=== PATIENT | female | born 1990 | race Caucasian/White ===

== ENCOUNTER 2022-03-04 08:00 | Outpatient (RCR) | payer OTHER, SELFPAY ==
--- NOTE | 2022-03-04 09:05 | BH.SGPN.GN ---
Behaviors/Verbalizations/Mental Status: [] Eye contact is good. Motor activity is appropriate. Appearance is casual. Speech is Appropriate. Mood is depressed. Affect is flat. Thoughts are linear and logical. No evidence of psychosis. Reviewed daily check in sheet and pt reports 3/5 for suicidal thoughts and 0/5 for intent. [place] Screening was completed at admission. Client Response/Progress/Benefit: [] Pt participated when prompted. Attentive. Daily symptom tracker notes 5/5 for anxiety, 4/5 for depression, and 2/5 for self-harm urges. Pt shared that today is her first day in PHP. When asked what she wanted to get out of the program she stated I'm looking for a reason to stay alive. Group empathized and attempted to make her feel welcome. Group shared advice and feedback for her first days in the program and provided encouragement which was beneficial. Pt appears engaged and would smile and laugh appropriately during the group. Limited progress noted as this was her first day in PHP. Will continue in PHP to maintain safety, improve functioning, and stabilize mood. Narrative Note: []
--- NOTE | 2022-03-04 10:10 | BH.SGPN.GN ---
Behaviors/Verbalizations/Mental Status: []Client alert and oriented, casually dressed and groomed. Eye contact avodiant. Motor activity appropriate. Speech within normal limits. Affect constricted, mood anxious, Thoughts linear, logical, no signs of hallucinations or delusions. Client Response/Progress/Benefit: Client responded well to session AEB taking notes. Participated in discussion of things that can keep people feeling trapped or stuck in life including; avoidance, unhealthy coping, and isolation. Connected with barrier of social anxiety. Client able to identify negative thoughts that have kept client stuck which included ?Everyone going to leave. and why try too much. Appeared to benefit from gaining awareness of how negative thoughts reinforce mental health symptoms and keep people stuck. Will continue IOP tx to, decrease presenting depression and to improve overall functioning.
--- NOTE | 2022-03-04 11:15 | BH.SGPN.GN ---
Behaviors/Verbalizations/Mental Status: []Client alert and oriented, casually dressed and groomed. Eye contact avodiant, Motor activity appropriate. Speech within normal limits. Affect flat mood depressed and anxious. Thoughts linear, logical, no signs of hallucinations or delusions. Client Response/Progress/Benefit: [] Client responded well to session, contributing to discussion and providing supportive feedback. Client identified a negative thought that has kept her stuck. Client's thought was what is even the point and why even try. Client reported when she thinks this way she will give up easily or not even try things at all. Client worked to reframe the thought by finding more rational, realistic ways to look at the thoughts and then processed within group setting. Client reframed the thought to ?Why not try?. Client stated she will use positive self-talk to continue challenging negative self-talk. Client appeared to benefit from practicing challenging negative thinking. Client will continue IOP tx to promote use of healthy coping skills that will improve overall functioning. Narrative Note: [] Behaviors/Verbalizations/Mental Status: []Client alert and oriented, casually dressed and groomed. Eye contact avodiant, Motor activity appropriate. Speech within normal limits. Affect flat mood depressed and anxious. Thoughts linear, logical, no signs of hallucinations or delusions. Client Response/Progress/Benefit: [] Client responded well to session, contributing to discussion and providing supportive feedback. Client identified a negative thought that has kept her stuck. Client's thought was what is even the point and why even try. Client reported when she thinks this way she will give up easily or not even try things at all. Client worked to reframe the thought by finding more rational, realistic ways to look at the thoughts and then processed within group setting. Client reframed the thought to ?Why not try?. Client stated she will use positive self-talk to continue challenging negative self-talk. Client appeared to benefit from practicing challenging negative thinking. Client will continue IOP tx to promote use of healthy coping skills that will improve overall functioning. Narrative Note: []
--- NOTE | 2022-03-04 14:54 | BH.COMM ---
Communication Note - Communication with Client Communication Note: Pt completed initial paperwork and [place] Suicide Screener which she scored severe. No active SI, plan, or intent today. Protective factors include mom and worry she will have a failed attempt that results in more problems. Pt denies any suicide attempts. Pt reports she does self-harm without intent to kill self. Pt states in the last month she has written a suicide note and made sure her house was ready in case anything happened to her. Pt states her friend has all of her knives. Denies access to firearms. Pt denies stockpile of medications besides the medications she is prescribed. Therapist provided counseling on reducing access to lethal means. Pt unsure she wants to include mom in plan to store extra prescription medications outside the home. Future-oriented. Reports ability to maintain safety today. Case discussed with Dr. Aguilar with plan to admit to [facility] with dx of F33.2
--- NOTE | 2022-03-04 15:04 | BH.MDN_ITS ---
Multi-Disciplinary Note - Note 45-min Individual Time Started:: 12:16 Date: 03/04/22 Purpose of session/treatment goals addressed:: Purpose of session was to assess pt's current symptoms and stressors, gather background information and identify treatment goals for [facility] level of care. Eye Contact:: Good Motor Activity:: Appropriate Appearance:: Casual Speech:: Appropriate Mood:: Anxious, Depressed Affect:: Congruent, Other - incongruent at times AEB client sharing about something sad but smiling Thoughts:: Linear, Logical, No evidence of hallucinations/delusions noted Staff Interventions:: psychoeducation on: - cognitive triangle and behavioral activation, CBT techniques, rapport building, strengths perspective, treatment planning, goal setting, taught coping skills Client Response:: Client responded well to session AEB client sharing openly about her history and reporting her first day in group went well. Client stated she has been struggling with mental health for several years. Client reported her mental health has been impacting her functioning for the past three years which has resulted in loss of a job and needing to change jobs. Client reported mental health symptoms worsened in April 2021 after her unexpectedly left her without any warning. Client stated she didn't see her from April 2021 until she saw him for the first time in December 2021. Client reported he still does not live in their home and she is unsure about the future of their relationship. Client stated once he left in April 2021 her depression and anxiety significantly worsened. Client reported she started having increased suicidal thoughts with ideas and some intention. Client stated in July she started online counseling since she wasn't getting better. Client reported after not seeing treatment progress she was encouraged to see a psychiatrist for medications. Client stated in December 2021 she started medications. Client reported her psychiatrist at [place] [address] referred her to [facility] IOP program after continuing to see limited benefit from lower level of care. Client reported she has been having suicidal thoughts daily for the last couple of months. Client denies any suicide attempts or inpatient psychiatric admissions. Client reported when severely depressed she has difficulty getting out of bed, anhedonia, low motivation, low concentration, decreased energy, feelings of hopelessness and worthlessness. Client stated she has seen some progress since starting medications with having increased interest in some of the things she used to like to do. Client reported while in [facility] she'd like to learn healthy coping skills to manage anxiety and depressed symptoms. Client stated she also would like to find purpose in life. Recognizes that would be a goal that would take longer to achieve. Client stated her anxiety keeps her from going places and her anxious thoughts at times will make her feel uncomfortable unless she performs a certain task. Client connected with psychoeducation on cognitive triangle, maintenance cycles and behavior activation. Client stated her goal for the day is to go to the library. Risks/Concerns:: Client reports daily thoughts of suicidal ideation. Denies active plan or intention to date. Future focused. No access to firearms. Client states she feels able to keep herself safe. Progress Toward Goals/Plan:: No progress noted given today is first day in PHP. Client provided homework to start completing provided safety/crisis plan. Client agreeable to work on safety plan and work on goal she set for the day. Client to continue PHP to improve daily functioning, increase healthy coping, and prevent decompensation. Time Stopped:: 13:00
--- NOTE | 2022-03-04 19:44 | BH.MTP_ITS ---
Master Treatment Plan - Patient Information Program Physician:: Dr. Aguilar Primary Therapist:: Lenore Madrid, [facility] - Psychiatric Diagnoses Psychiatric Diagnoses:: 1. Major depressive disorder, recurrent, severe without psychosis. 2. Generalized anxiety disorder. 3. Strong cluster B traits. 4. Trichotillomania Diagnosis Code(s):: F33.2 - Estimated LOS Estimated LOS (in weeks):: 1 Problem/Goal #1 - Problem/Goal #1 Stated Goal:: Client will reduce depression, feelings of hopelessness, and suicidal ideation due to Persistent Depressive Disorder through Partial Hospitalization program.? Description of Barriers: Client's distorted thoughts, low confidence, negative thinking, limited social support, isolation, and suicidal thoughts could be potential barriers to treatment. Functional Impact: The patient is a 31-year-old female who has been for 3 years but has been for 10 months (since April 2021). The patient has a history of depression, anxiety and trichotillomania and was referred to the [facility] behavioral health IOP program by her outpatient industrial psychology teacher due to depression and daily suicidal ideation. She has limited primary support. For the past 6 months she has had daily suicidal ideation off and on during the day but more than fleeting. She has been isolating herself and she has a history of self-harm for the past month now she has been cutting bilaterally on her arms superficially. Pt endorses feelings of depression with crying episodes, anhedonia, low motivation, apathy, decreased concentration, feelings of hopelessness and worthlessness. Pt has panic attacks weekly and have recently increased to daily since making a medication switch. - Objectives Objective #1 Stated Objective: Client will work with therapist to develop a ?crisis plan? which includes emergency telephone numbers, 3-4 coping strategies for SI, lists of supports, positive aspects of life, and motivations.? Interventions: Therapist will provide patient with safety plan worksheet and work with pt. to develop individualized plan. Discharge Criteria: Client will have met this objective when has completed crisis plan. Target Date: 03/13/22 Objective #2 Stated Objective: Client will learn and utilize 2-3 healthy coping strategies to manage depressive symptoms. Interventions: Therapist will utilize CBT techniques to assist client with understanding the connection between thoughts, feelings and behaviors. Education will be provided on behavioral activation. Therapist will assist client in learning internal coping strategies to manage depressive symptoms, along with helping client identify triggers. Discharge Criteria: Client will have achieved this goal when can verbalize and has practiced at least 2 healthy coping strategies that successfully manage depressive symptoms and decrease suicidal ideation. Target Date: 03/13/22 Problem/Goal #2 - Problem/Goal #2 Stated Goal:: Stabilize anxiety level while increasing ability to function on daily basis. Description of Barriers: Client's distorted thoughts, low confidence, negative thinking, limited social support, isolation, and suicidal thoughts could be potential barriers to treatment. Functional Impact: The patient is a 31-year-old female who has been for 3 years but has been for 10 months (since April 2021). The patient has a history of depression, anxiety and trichotillomania and was referred to the [facility] behavioral health IOP program by her outpatient industrial psychology teacher due to depression and daily suicidal ideation. She has limited primary support. For the past 6 months she has had daily suicidal ideation off and on during the day but more than fleeting. She has been isolating herself and she has a history of self-harm for the past month now she has been cutting bilaterally on her arms superficially. Pt endorses feelings of depression with crying episodes, anhedonia, low motivation, apathy, decreased concentration, feelings of hopelessness and worthlessness. Pt has panic attacks weekly and have recently increased to daily since making a medication switch. - Objectives Objective #1 Stated Objective: Client will learn and implement 2-3 calming skills to reduce overall anxiety and manage anxiety symptoms. Interventions: Therapist and group sessions will help client identify physiological warning signs of anxiety, increase awareness of thoughts that increase anxiety, and identify behaviors that reinforce anxious symptoms. Group and individual counseling will teach client calming skills to help manage anxious symptoms. Discharge Criteria: Client will have achieved this goal when can verbalize at least 2 calming skills and reports skills successfully help reduce anxious symptoms. Target Date: 03/13/22
--- NOTE | 2022-03-05 09:05 | BH.SGPN.GN ---
Behaviors/Verbalizations/Mental Status: [] Eye contact is good. Motor activity is appropriate. Appearance is casual. Speech is WNL. Mood is depressed. Affect is flat. Thoughts are linear and logical. No evidence of psychosis. Reviewed daily check in sheet and pt reports 5/5 for suicidal thoughts and 3/5 for intent. This is higher than yesterday. Chronic SI, however will meet with therapist this afternoon. Client Response/Progress/Benefit: [] Pt participated at times during the group discussion. Attentive. Emotion for today is overwhelmed. Daily symptom tracker notes 5/5 for depression, anxiety, and self-harm urges. She was able to identify two mental health wins however they were both over the weekend (prior to starting IOP). She reports that she attended balloonfest with friends and was able to manager software her anxiety. I don't do crowds well. Utilizing some earthing techniques to help her through. Also reports spent time outside of her house by reading on the porch. Despite intensity of scores pt was engaged, smiling, and laughing with peers. She did not bring up any stressors or struggles since yesterday. Benefits from the social aspect of group. Limited progress noted per pt's symptom tracker scores. Will continue in PHP to maintain safety, improve functioning, and increase healthy coping skills. Narrative Note: []
--- NOTE | 2022-03-05 10:10 | BH.SGPN.GN ---
Behaviors/Verbalizations/Mental Status: []Pt alert and oriented, neatly dressed and groomed. Eye contact good. Motor activity appropriate. Speech within normal limits. Affect constricted, mood anxious and depressed. Thoughts linear, logical, no signs of hallucinations or delusions. Client Response/Progress/Benefit: []Pt was an engaged participant AEB pt listening attentively to others. Attentive during psychoeducation on communication styles. Assisted group with identifying barriers of effective communication which included: ?dropping hints,? texting, assumptions, yelling, and hurtful language. Pt identified they most often use passive communication as pt over apologizes and does not express needs. Pt reports being passive impacts pt by being a people pleaser and getting taken advantage of by others. Benefited from increased awareness of different communication barriers, styles, and the importance of communicating effectively to improve mental wellness. Will continue PHP tx to prevent decompensation, maintain safety, and gain healthy coping skills. Narrative Note: []
--- NOTE | 2022-03-05 14:30 | BH.MDN ---
Multi-Disciplinary Note - Note 60-min Individual Time Started:: 12:10 Date: 03/05/22 Purpose of session/treatment goals addressed:: Purpose of session was to assess pt's current lethality risk, complete safety plan and set daily goal to encourage behavior activation. Eye Contact:: Good Motor Activity:: Appropriate Appearance:: Casual Speech:: Appropriate Mood:: Anxious, Depressed Affect:: Congruent Thoughts:: Linear, Logical, No evidence of hallucinations/delusions noted Staff Interventions:: thought challenging, CBT techniques, rapport building, strengths perspective, completed risk assessment / safety planning, goal setting Client Response:: Client stated she had a rougher night because she was triggered by two of the questions on the safety plan. Client reported she didn't like the positive reframe thoughts on the list because the thoughts seemed fake. Client stated she also started having negative thoughts that she didn't think identifying her mom as a reason to live or motivation to get better was good enough. Client reported her negative thoughts spiraled and she started to think what's the point of trying. Client stated she coped by self-harming via cutting last night; showed therapist several cuts on inner wrist. Client reported she did attempt to cope after she cut the first time by watching funny animal videos which she stated did help briefly. Client stated she did cut again after watching the videos. Client reported her self-harm last night was not with the intent to kill herself. Client stated she is frustrated she went back to old ways of coping since she hasn't cut in over a week. Client worked with therapist through the difficult parts on her safety plan. With assistance from therapist client able to identify thought reframes for her negative thought patterns. Client also connected with discussion that reasons to live can be the little things as well as in what would she miss if she weren't alive. Client worked with therapist to identify what would be helpful from supports and what would be unhelpful. Client identified supports can reach out to when needs distraction and who she can reach out to when needs to talk about her crisis. Client open to discussion about reducing means to lethal means. Client stated her plan for today is to put her last sharp object that she forgot to give her friend into her trunk tonight. Stated keeping her knives in her trunk has helped in the past. Client reported willing to put her weeks worth of medication in her pill organizer then put the rest of the medication in her trunk. Client stated not wanting to give her medication to her mom or friend because feels like she would be giving up all of her control. Client stated keeping knife and medications in her trunk will be enough. Agreed if suicidal thoughts worsen she'd be open to involving either her mom or friend into securing her medications. Client stated she did accomplish goal of going to the library after IOP yesterday which she did enjoy. Client reported today her small goal is to go get bubble tea because it will keep her from going home to lay in bed, which she stated is what she wants to do. Risks/Concerns:: Client reported on her symptom tracker this morning her suicidal thoughts as a 5/5 with 5 being severe and her intent a 3/5. Client reported at time of individual session she feels able to keep herself safe. Client agreeable to keep extra medications and sharps in her car trunk. Agreed if thoughts were to worsen she will have one of her supports store those items at their house. Client understands to call crisis hotline or go to nearest emergency room if feels unable to maintain safety. Progress Toward Goals/Plan:: Progress limited AEB reverting back to self-harm as a way to cope with negative thought patterns last night. Client did attempt to use one of her healthy coping skills but still reverted back to unhealthy strategies. Client struggles to manage her negative thoughts on her own. Client continues to report increased anxiety since coming off the Effexor. Client is to continue PHP to improve daily functioning, maintain safety and prevent decompensation. Time Stopped:: 13:10
--- NOTE | 2022-03-06 10:10 | BH.SGPN.GN ---
Behaviors/Verbalizations/Mental Status: []Pt alert and oriented, neatly dressed and groomed. Eye contact good. Motor activity appropriate. Speech within normal limits. Affect congruent, mood anxious and euthymic. Thoughts linear, logical, no signs of hallucinations or delusions. Client Response/Progress/Benefit: []Pt responded well to session AEB taking notes throughout and listening attentively to others. Pt was attentive throughout group activity identifying famous individuals and how they overcame failure to be successful. Pt helped group identify how fear of failure can impact mental health and relationships. Pt personally identified it leads to fear of success and avoidance. Pt participated in experiential activity, working with group members to problem solve. Appeared to benefit from increased knowledge of fear of failure. Will continue PHP tx to prevent decompensation, maintain safety, and increases overall functioning. Narrative Note: []
--- NOTE | 2022-03-06 10:30 | BH.NA_ITS ---
Physical Data - Vital Signs Pulse Rate: 75 Blood Pressure: 136/81 - Height/Weight Height: 1.63 m Weight:: 111.13 kg Weight in Pounds: 245.0 lbs Current Medication Compliance - Medication Compliance Do you take your medication as prescribed?: Yes Nutritional History - Appetite Nutritional Instructions:: If client shows signs of a swallowing problem, weight change of 10 pounds or more in the last month, or is on a diabetic diet, the physician will review and request a dietitian consult, as appropriate. All unintentional weight loss will be referred to the physician for decision on need for dietitian consult. Describe your appetite:: Good Functional Assessment - Sleep Pattern Describe any problems with sleeping: Client states it is hard to fall asleep, but she gets 6-8 hours of sleep per night. - Activities Motor Activity:: Functional Sensory/Communication Assess - Vision Problems Do you have any vision problems?: Glasses - Communication Problems Do you have difficulty understanding what people are saying?: No Medical Problems/History - Pain Assessment Do you have acute or chronic pain?: No - Additional History Additional comments:: trichotillomania Surgical History - Surgical History Have you had any surgeries? If so, list type and date:: No Substance Abuse - Substance Abuse Please describe substance abuse in the last 30 days:: Client reports occasional social alcohol use. Client denies tobacco or substance use. Client drinks 1 cup of coffee per day. Mental Status Summary - Mental Status Significant Findings/Observations on Appearance and Mood:: Client is alert and oriented x 4. Client is casually groomed with good hygiene. Client makes fair eye contact. Client's voice has normal volume and rate. Client makes logical associations and has normal processing, with somewhat of a flat affect at times. Client denies delusions/hallucinations. Client reports daily SI for the last several months, but denies intent at this time. Suicide Assessment - Suicidal Ideation Are you currently or have you been suicidal in the past?: Yes - daily SI, denies intent/plan at this time Suicidal Intentional Rating Scale (SIRS): Current suicidal thoughts/No plan/Contracts for safety Physician Notification: If Active suicidal thoughts/Will not contract for safety is checked, contact physician and document in the Physician Notification section below. Assault History/Potential Past Psychiatric History - MH Treatment Hx Past Psychiatric Medications:: Effexor, Prozac, Zoloft Age of first mental health symptoms: Client states she first took medications for mental health about 3 years ago. Describe (age, circumstance, etc) any past hospitalizations: None. Current providers for mental health treatment (counselor, psychiatrist, bilingual patient support caseworker, etc.): [facility], psychiatry at [place] [id number] Fall Risk Assessment - Age Age: Less than 60 - Mental Status Mental Status: Willing & able to ask for assistance when needed - Physical Status Physical Status: No problems - Impairments Impairments: None - Elimination Elimination: Continent AND independent - Gait or Balance Gait or Balance: Walks independently - Hx of Falls History of falls in the past 6 months: No known history - Medications/Substances Psychotropics:: Antidepressants Medications/substances used within the past 24 hours or ordered to administer: 1-2 of the medications/substances listed above - Total Score Total Points:: 1 RN Summary of Impressions - Impressions Recommendations: Include psychiatric and medical issues, treatment planning recommendations, and discharge planning needs. Impressions: Psychiatric Issues: 1. Major depressive disorder, recurrent, severe without psychosis. 2. Generalized anxiety disorder. 3. Strong cluster B traits. 4. Trichotillomania - Level of Care How do the client's current symptoms and functional deficits support need for this level of care?: Client was referred to [facility] by outpatient psychiatrist for increased SI with thoughts of methods. Client states she started going to in 2020 and her therapist referred her to psychiatry. Client states psychiatry referred her to [facility] after her suicidal thoughts increased in the last several months. Client states she started self-harming herself in the last month, showing this nurse healing/healed superficial linear suarez on her left forearm. Client states she last cut on Friday. Client also reports panic attacks, almost daily in the last few weeks. Client also endorses isolation, anhedonia, and decreased motivation/energy. Client states she has been having suicidal thoughts over the last few months with thoughts of methods. Client states last week she was beginning to have less thoughts, but states she was triggered on Friday before she cut and SI intensified again. IOP will promote gains and prevent further decompensation while providing social support and skills training.
[2022-03-06 10:57] VITALS: BP 136/81; PULSE 75
--- NOTE | 2022-03-06 11:15 | BH.SGPN.GN ---
Behaviors/Verbalizations/Mental Status: []Pt alert and oriented, neatly dressed and groomed. Eye contact good. Motor activity appropriate. Speech within normal limits. Affect congruent, mood euthymic. Thoughts linear, logical, no signs of hallucinations or delusions. Client Response/Progress/Benefit: []Pt responded well to session, engaged in the experiential activity and attentive throughout group processing. Pt reported fear of failure has kept pt from traveling, furthering her education, and losing weight. Pt completed fear of failure worksheet and was able to identify thoughts and behaviors that reinforce personal fear of failure including fear of success, comparing herself, not asking for help, and all or nothing thining. Pt participated in small group discussion regarding strategies to overcome fear of failure. Identified wanting to work on celebrating what she can do and accepting small wins throughout her day. Appeared to benefit from increased knowledge of strategies to combat fear of failure and gaining self-awareness. Pt will continue PHP tx to prevent decompensation, maintain safety, and gain healthy coping skills. Narrative Note: []
--- NOTE | 2022-03-06 12:47 | BH.PSY.EVA_ITS ---
Psychiatric Evaluation Initial Evaluation Initial Evaluation: History of Present Illness: [] The patient is a 31-year-old female who has been for 3 years but has been for 10 months (since April 2021). The patient has a history of depression, anxiety and trichotillomania and was referred to the [facility] behavioral health IOP program by her outpatient associate professor of psychology due to depression and daily suicidal ideation. The patient is currently living alone since her left home 10 months ago. The patient states that she was surprised when he left home and he is still living in the [place] and he does pay rent for her and helps with expenses but she pays some of the utilities. She is only seen him twice in the past 10 months and he just never came back after he left. There is no plans for them to divorce. 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 He is still not a [place] citizen. 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 She has limited primary support and cites her mother and 1 friend. For the past 6 months she has had daily suicidal ideation off and on during the day but more than fleeting. She has had some thoughts of methods including cutting her wrists or crashing a car but she has no definitive plan. She has been isolating herself and she has a history of self-harm for the past month now she has been cutting bilaterally on her arms superficially. Last time she cut her arms was 2 days ago and she has not required stitches for this at all. She cut her self 1 time as a teenager but then did not cut herself at all until 1 month ago. Other stressors include her father having dementia. The patient told the staff that cutting helps me show others how much internal pain I have.. The patient has history of low self-esteem, low motivation and she pulls her eyebrows out but has been doing this less lately. The patient endorses feeling sad, depressed and having crying episodes. She is feeling hopelessness, worthlessness and guilt. She is anhedonic and has some initial insomnia but is sleeping 6 to 8 hours a night. She has low energy and decreased concentration. She is a worrier by nature and ruminates negatively about herself. She has panic attacks weekly but these have increased in the last 10 days to almost daily. She she has mostly passive suicidal ideation with no definite plan. Her mother is a protective factor that prohibits her from completing suicide because she does want to hurt her mother. She has no access to guns and knives or have been removed from the house. She denies active suicidal ideation, homicidal ideation, hallucinations, delusions or symptoms of wilson. She denies OCD, eating disorder, trauma or, PTSD, seizure or head trauma. Current Psychiatric Medications: [] Effexor XR 75 mg was weaned and her last dose of this is today by her outpatient provider. She was started on Pristiq 50 mg p.o. daily and has been on this for 10 days now. She is also on hydroxyzine 25 mg as needed she takes it once in the morning. And trazodone 50 mg p.o. nightly as needed for sleep which does not help that much. Past Psychiatric History: [] No psychiatric admissions ever. No suicide attempt s ever. No IOP before. She has a associate professor of psychology and a counselor for the past year. She was first depressed as a teenager and took her first medications in 2019 and this was Zoloft. She had her first counseling last year and it was helpful. She cut 1 time as a teenager but then did not cut herself again until 1 month ago as noted above. Past medications include Zoloft only in the 1 she is taking now including Effexor that she is weaning off of. Substance Use History: [] She drinks occasional alcohol about less than 2 drinks per week. No marijuana use. Non-smoker. No vaping. No drug use. No rehab ever. Allergies: [] Bactrim, Keflex, amoxicillin Medications: [] Psych meds plus oral contraceptive pills Past Medical History: [] Obesity, no other medical problems and no surgeries. She is a 0 para 0 female with regular menstrual periods on control pills. Family Psychiatric History: [] Mother is 71 years old and her father is 84 years old. Father has depression and dementia. She has a brother with PTSD from the war. No substance issues in the family. No's completed suicides in the family. Personal/Social History: [] She was born and raised in [place] and describes her childhood as quiet. She says her parents were much older when they had her and they did not do much. She has 7 half-brothers and sisters but they are all over 14 years older than her. She is slightly close to a few of her half siblings but really was raised as an only child. She denies any verbal, physical or sexual abuse ever. School was good for her and she had friends. She graduated high school and got a BA in counseling from college. 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 Her longest job was for 3 years in college. Patient at age 28 and the marriage has lasted 3 years but they have been for the past 10 months. The patient says the marriage was good before her just left suddenly and this was a surprise to the patient who thought the marriage was going well. Patient met her who was a [place] citizen while she was on a mission trip to [place]. He is 31 years old and this is his first marriage. He has a son in [place] but he does not see him. He is not yet a [place] citizen and is working at for [employer] teaching people how to manage [employer]. She has had no other serious relationships. Legal History: [] No arrests. Has driver operator's license. No DUIs. Review of Systems: [] Negative except as noted in present illness. Vital Signs: [] Vital signs and exam reviewed in records and nurses notes and updated and the patient is found medically able to participate in the PHP program. Mental Status Examination: [] The patient is an obese female who appears normal for stated age and is casually dressed and groomed with good hygiene. She has no psychomotor agitation or retardation. She is ambulatory with a normal gait. Eye contact is good and speech is normal rate and rhythm and fluent with no pressure. Mood is depressed. Affect is constricted at times but full and happy with laughter at times. Thought process is goal-directed and organized. Thought content: There is evidence of passive suicidal ideation but there is no evidence of active suicidal ideation, definitive plan for suicide, homicidal ideation, hallucinations, delusions. Reality testing is intact. Intelligence is above average. Judgment is intact. Insight is fair. Impulsivity is moderate. Diagnoses: [] 1. Major depressive disorder, recurrent, severe without psychosis 2. Generalized anxiety disorder 3. Strong cluster B traits 4. Trichotillomania 5. Primary support issues and some financial stress Plan: [] The patient will start the PHP program at [facility] as the structure, support, education and group therapy will hopefully present prevent worsening of the patient's symptoms which might require hospitalization. She felt safe during the interview and if it anytime she does not feel safe she will let us know or go to the emergency room. The risks, options, possible complications and side effects of the medications were discussed with the patient and she understands and accepts these. No medication changes were made today except the patient was advised that she could take up to 100 mg of trazodone at bedtime as needed for sleep. In addition she could take 1-2 of her eyedrops of her 25 mg hydroxyzine's at bedtime to help with sleep on the days she does not take the trazodone. I will see the patient in follow-up in 1 week. She will continue to follow-up with her outpatient providers also.
--- NOTE | 2022-03-06 12:59 | BH.DR.ITP ---
Initial Treatment Plan Patient Information Visit Information: ADMISSION DATE: EXPECTED LOS: 4-6 weeks Problems/Symptoms Problem #1:: Depression Symptom:: Sadness, crying, hopelessness, worthlessness, anhedonia, low energy, decreased concentration, guilt, passive suicidal ideation Problem #2:: Anxiety Symptom:: Worry, rumination, panic attacks
--- NOTE | 2022-03-06 15:18 | BH.MDN_ITS ---
Multi-Disciplinary Note - Note 45-min Individual Time Started:: 12:03 Date: 03/06/22 Purpose of session/treatment goals addressed:: Purpose of session was to address goals 1 and 2 from MTP. Eye Contact:: Fair Motor Activity:: Restless Appearance:: Casual Speech:: Appropriate Mood:: Anxious, Dysthymic Affect:: Constricted, Congruent Thoughts:: Linear, Logical, No evidence of hallucinations/delusions noted Staff Interventions:: thought challenging, CBT techniques, rapport building, strengths perspective, goal setting, taught coping skills - identifying 3 positives every evening before bed Client Response:: Client reported she had a better night because she took care of her snails, texted her friend and let self laugh. client reported after group yesterday she accomplished goal of getting bubble tea and went to the antique shop to check things out. Client reported she enjoyed herself at the antique shop and was able to get something small for her snails. Client reported she was having difficulty with comparing self to others last night. Client stated she kept thinking she should be able to do more which increases her anxiety and makes her feel more overwhelmed. Client responded well to cognitive distortions review. Client stated she has learned about distortions in the past but hasn't thought about them in a while client reported she connects with all her nothing, ?shoulds? and overgeneralization. Client able to recognize these sorts of thoughts can result in unhealthy decision making and reinforce feelings of depression. Client reported too many noises can result in her feeling overwhelmed and shutting down. Client reported sometimes fidget items and grounding can help her manage the anxiety in the moment. Client reported using tapping 2 engage her pressure points also helps relieve some anxiety. Client reported goal for today is to get her blood drawn and go to [employer] to get groceries. Discussed with therapist strategies to help her get through [facility] because lots of people can be anxiety provoking. Client receptive to identifying 3 positives every evening prior to bed to start challenging her negative perspective. Risks/Concerns:: Client reports chronic suicidal thoughts, denies current intention or plan to kill self. Client does not have access to firearms and has locked up her sharp in her trunk. Client future focused. Agreeable to go to nearest emergency room or call crisis if feels unable to maintain safety. Progress Toward Goals/Plan:: Progress noted AEB client reporting decreased intensity of self-harm and suicidal thoughts last night. Client accomplished goal of getting bubble tea and spent time taking care of her snails. Continues to struggle with daily thoughts of suicide, depressed and anxious symptoms. Client to continue PHP to maintain safety, increase use of healthy coping skills and prevent decompensation. Time Stopped:: 12:45
--- NOTE | 2022-03-07 09:05 | BH.SGPN.GN ---
Behaviors/Verbalizations/Mental Status: [] Eye contact is good. Motor activity is appropriate. Appearance is casual. Speech is Appropriate. Mood is depressed. Affect is flat. Thoughts are linear and logical. No evidence of psychosis. Reviewed daily check in sheet and pt reports 3/5 for suicidal thoughts and 1/5 for intent which is actually decreased since mid-week. Client Response/Progress/Benefit: [] Pt was an active participant in group discussion. Attentive. Provided appropriate feedback. Daily symptom tracker notes 5/5 for depression and anxiety and 1/5 for self-harm urges. Emotion for today is curious. She was quick to point out that she is not hopeful just curious to see if IOP and changes she is making will be beneficial for her mental health. She reports being emotionally overwhelmed at times after IOP due to the fact that mental health issues are discussed extensively. She also reports that being social for extended periods of time can cause distress. Mental health win was that she walked with a neighbor yesterday to get ice cream which was a nice distraction and beneficial. Stressor is related to certain family members possibly returning to town to visit. She shared why this is a stressors and why this increases her anxiety. Progress noted per pt report. Her symptom tracker scores have decreased and her emotion for today was not negative. Will continue in PHP to maintain safety, stabilize mood, prevent decompensation, and increase healthy coping skills. Narrative Note: []
--- NOTE | 2022-03-07 10:20 | BH.SGPN.GN ---
Behaviors/Verbalizations/Mental Status: []Pt alert and oriented, casually dressed and groomed. Eye contact good. Motor activity appropriate. Speech within normal limits. Affect constricted, mood content. Thoughts linear, logical, no signs of hallucinations or delusions. Client Response/Progress/Benefit: []Pt was a passive participant in the discussion, but engaged in the activity. Group worked together to identify benefits of healthy relationships which include; improves mental health, encouragement, motivation, accountability, validation, connection, someone to share experiences with, and personal growth. Group identified factors that lead to unhealthy relationships which included; co-dependence, lack of personal exploration, gaslighting, and blaming. Pt did not shared personal examples, but often nodding. Actively participated in group experiential activity. Benefited from increased insight and awareness of benefits of healthy relationships and factors that contribute to unhealthy relationships. Will continue in PHP tx to prevent decompensation, reduce the use of unhealthy coping skills, and maintain safety. Narrative Note: []
--- NOTE | 2022-03-07 14:32 | BH.MDN ---
Multi-Disciplinary Note - Note 45-min Individual Time Started:: 12:03 Date: 03/07/22 Purpose of session/treatment goals addressed:: Purpose of session was to address goal 1 and 2 from MTP. Eye Contact:: Fair Motor Activity:: Appropriate Appearance:: Casual Speech:: Appropriate Mood:: Depressed Affect:: Constricted Thoughts:: Linear, No evidence of hallucinations/delusions noted Staff Interventions:: thought challenging, psychoeducation on: - DBT [place] Mind, Reasonable Mind and Emotional Mind., CBT techniques, rapport building, strengths perspective, goal setting, taught coping skills Client Response:: Client reported she was able to accomplish goal of going to [employer] and getting her blood work complete. Client reported last night she went and got ice cream with her neighbor which she said was enjoyable. Client reported her sister who is 16 years older than her is supposed to be visiting potentially this weekend with her sister's family. Client reported feeling torn because she's excited to see her sister but also worried because they don't know of her current struggles. Client agreed she can set boundaries with mom to not share clients current mental health struggles with sister and other family. Client stated additional stressor is sometimes sister has said she will visit but ends up not coming. Client worked with therapist to identify additional ideas of what she can do if her sister does not end up visiting. Client reported this weekend she would like to work on a morning routine of getting up by 10:00 AM each day. Client reported additionally she'd like to work on one of her mya projects that she has been putting off and to paint her art stuff. Client reported she will also take time to read because she really enjoys that. Client stated last night she did write down her accomplishments/positives which she reported seems to be helpful because it's switching her mindset to what she is getting done. Client reported her depression anxiety is still there but hasn't been feeling despair or suicidal thoughts as intensely as she was at the beginning of [facility]. Client reported her goal is to limit self to one hour of phone time and replace this time with reading and spending time with her snails. Risks/Concerns:: Chronic suicidal thoughts, denies suicidal intention or plan. Future focused. Feels able to maintain safety. Progress Toward Goals/Plan:: Progress noted AEB client reported decreased feelings of despair and able to manage depressed/anxious symptoms more effectively. Client spending time with neighbor to decrease isolation. Client continues to report depressed and anxious symptoms but has been able to maintain safety. Client to continue PHP to maintain safety, continue use of healthy coping and prevent decompensation. Time Stopped:: 12:50
== END 2022-03-07 23:59 ==
LOC: BHPHP 08:00
PROVIDERS: Referring Provider Psychiatry & Neurology Psychiatry; Visit Provider Psychiatry & Neurology Psychiatry
DX: F33.2 Major depressive disorder, recurrent severe without psychotic features (principal); F41.8 Other specified anxiety disorders; R45.851 Suicidal ideations; E66.9 Obesity, unspecified; Z81.8 Family history of other mental and behavioral disorders; F63.3 Trichotillomania
CPT/HCPCS: H0035; 90834; 90837; G0410

== ENCOUNTER → 2022-03-06 | Outpatient (CLI) | payer OTHER, SELFPAY ==
[2022-03-06 16:41] LABS: Vitamin D,25 Hydroxy 43.9 ng/mL
== END | disposition home or self-care (01) ==
PROVIDERS: Visit Provider Psychiatry & Neurology Psychiatry
DX: E55.9 Vitamin D deficiency, unspecified (principal)
CPT/HCPCS: 36415; 82306; 84443

== ENCOUNTER 2022-03-08 07:27 | Outpatient (RCR) | payer OTHER, SELFPAY ==
[2022-03-08 00:52] VITALS: BP 136/81; PULSE 75
--- NOTE | 2022-03-08 09:00 | BH.SGPN.GN ---
Behaviors/Verbalizations/Mental Status: [] Eye contact is good. Motor activity is appropriate. Appearance is casual. Speech is Appropriate. Mood is depressed. Affect is flat. Thoughts are linear and logical. No evidence of psychosis. Reviewed daily check in sheet and pt reports 3.5 for suicidal thoughts and 1/5 for intent (this has been her baseline). Client Response/Progress/Benefit: [] Pt was an active participant in group discussion. Attentive. Emotion for today is frustrated. Daily symptom tracker notes 5/5 for depression and anxiety and 2/5 for self-harm urges. Mental health wins were that she read for four hours which was a goal of hers. Discussed how this benefited her mental health which was mainly to stay off my phone for extended periods of time. Screen time use was excessive and led to increased depression. Stressor was being invalidated by her support her told her that her depression is not as bad as you think it it. She discussed how this impacted her and minimized her thoughts/feelings. Group provided some feedback regarding this topic and discussion was had on managing these types of statements and stigma which was beneficial. Progress noted per pt report as she completed a goal. Will continue in PHP to maintain safety, increase health coping, decrease self-injurious behaviors, and prevent decompensation. Narrative Note: []
--- NOTE | 2022-03-08 10:15 | BH.SGPN.GN ---
Behaviors/Verbalizations/Mental Status: []Pt alert and oriented, neatly dressed and groomed. Eye contact good. Motor activity appropriate. Speech within normal limits. Affect constricted, mood content. Thoughts linear, logical, no signs of hallucinations or delusions. Client Response/Progress/Benefit: []Pt attentive listening to peers, contributing at times, and taking notes during session. Listened as the group brainstormed the positive and negative aspects of stress on physical and mental health. Group did well to identify the benefits of stress as well as the impact of distress on performance and mental health. Pt?s top stressors right now are finances, marital issues, and constant negative thinking. Pt shared her ?stress jar? is full and this manifests in pt feeling panic, wanting to shut down, and can lead to self-harm. Pt seemed to benefit from increased self-awareness of current stressors and impact stress has on mental health.Pt will continue PHP tx to prevent decompensation, increase the use of healthy coping skills, and reduce negative thinking patterns. Narrative Note: []
--- NOTE | 2022-03-08 11:15 | BH.SGPN.GN ---
Behaviors/Verbalizations/Mental Status: []Pt alert and oriented, neatly dressed and groomed. Eye contact good. Motor activity appropriate. Speech within normal limits. Affect congruent, mood euthymic. Thoughts linear, logical, no signs of hallucinations or delusions. Client Response/Progress/Benefit: []Pt participated at times during group discussions. Attentive during psychoeducation on the 4 A's of Coping with Stress (Avoid, Alter, Adapt, Accept). Participated in experiential activity in which group members had to utilize stress management skills in the moment. Pt agreed with peers that their anxiety and sense of urgency was a barrier and helped group problem-solve solutions. Pt engaged in review of the 4 A?s and picked wanting to work on altering her thoughts when she is stressed to combat constant negative thoughts.? Benefited from processing in the moment stress management strategies and identifying new ways to cope with stress. Will continue in PHP tx to reduce negative thinking patterns, maintain safety, and increase mood stability. Narrative Note: []
--- NOTE | 2022-03-08 15:49 | BH.MDN ---
Multi-Disciplinary Note - Note 45-min Individual Time Started:: 12:15 Date: 03/08/22 Purpose of session/treatment goals addressed:: Purpose of session was to address goals 1 and 2 from MTP. Eye Contact:: Fair Motor Activity:: Restless Appearance:: Casual Speech:: Appropriate Mood:: Anxious, Depressed Affect:: Constricted Thoughts:: Linear, No evidence of hallucinations/delusions noted Staff Interventions:: thought challenging, motivational interviewing, CBT techniques, rapport building, strengths perspective, goal setting, taught coping skills Client Response:: Client reported she had a ?yevgeniy? weekend. Client stated on Friday she got mail that spiraled her because it had to do with both her and her . Client reported she had urge to self-harm but did not instead chose to shut down for awhile. Client stated she was able to keep herself from self-harming by asking herself ?if this is really necessary?. Client stated not having access to lethal items helped her from acting on self-harm and suicidal thoughts over the weekend. Client reported she did communicate with her but still is frustrated because doesn't have all the answers. Client reported she was able to accomplish her goal of painting her mya project and reading. Client stated she also woke up before 10:00 AM each day this weekend. Client reported her sister and family did end up visiting which she spent time with them and really enjoyed herself. Client stated using a fidget toy helped her managing anxiety and being in the moment. Client worked with therapist to develop a trigger response plan when she receives her ?s mail. Client identify her goal for today is to use her navjot to do one of her tapping exercises. Risks/Concerns:: Client reports chronic suicidal ideation. Denies current suicidal intention or plan. Feels able to maintain safety. Client reports increased SI over this weekend but was able to stop self from trying anything or self-harming. Client agrees to call crisis or go to nearest emergency room if feels unable to maintain safety. Progress Toward Goals/Plan:: Client reports regression in having increased suicidal and self-harm thoughts however she was able to use skills of thought challenge and distraction to stop self from hurting self. Client did shut down for awhile but still was able to accomplish several goals and be productive. Client reported being able to enjoy herself when hanging out with family. Client progress AEB her being able to bounce back from a rough day. Client does not feel ready to discharge from [facility] due to recent stressor. Plan is for client to discharge from [facility] on Friday. Client to continue PHP to maintain safety, increase healthy coping, improve emotion regulation and prevent decompensation. Time Stopped:: 13:00
--- NOTE | 2022-03-12 09:05 | BH.SGPN.GN ---
Behaviors/Verbalizations/Mental Status: [] Eye contact is good. Motor activity is appropriate. Appearance is casual. Speech is Appropriate. Mood is depressed. Affect is flat. Thoughts are linear and logical. No evidence of psychosis.Reviewed daily check in sheet and pt reports a 4/5 for suicidal ideations and 1/5 for intent. This has been close to baseline for pt since entering [facility]. Client Response/Progress/Benefit: [] Pt participated at times during the group discussion. Attentive. Daily symptom tracker notes 5/5 for depression and anxiety, 4/5 for self-harm urges. Mental health win was managing a trigger to self-harm over the weekend. Pt states I really wanted to self-harm but I didn't. She discussed the coping strategies that she utilized and how they were beneficial. Another mental health win was that she spent time with her sister and [id number] and we actually had a good time. She shared that she was anxious and ruminating about spending time with them due to past experiences. Limited progress noted, she was able to use skills to not self-harm. Beneifted from group support, encouragment, and feedback. Will continue in [facility] to maintain safety, prevent decompensation, and increase healthy coping. Narrative Note: []
--- NOTE | 2022-03-12 10:10 | BH.SGPN.GN ---
Behaviors/Verbalizations/Mental Status: [] Client alert and oriented, casually dressed and groomed. Eye contact good. Motor activity appropriate. Speech within normal limits. Affect constricted, mood anxious. Thoughts linear, logical, no signs of hallucinations or delusions. Client Response/Progress/Benefit: [] Client responded well to session AEB sharing and listening attentively to others. Client was quiet for beginning of group with taking notes. Clinician provided psychoeducation on types of support including internal and external supports. Client participated in experiential activity illustrating the importance of having multiple social supports. Client provided supportive feedback and problem solving throughout group activity. Client participated in group processing of the activity. Client appeared to benefit from increased knowledge of the benefits of social support and greater self-awareness. Will continue IOP treatment with possible discharge this week to continue increasing application of healthy coping skills and decreasing negative self-talk to improve daily functioning. Narrative Note: []
--- NOTE | 2022-03-12 11:10 | BH.SGPN.GN ---
Behaviors/Verbalizations/Mental Status: []Client alert and oriented, casually dressed and groomed. Eye contact good. Motor activity appropriate. Speech within normal limits. Affect constricted, mood anxious, Thoughts linear, logical, no signs of hallucinations or delusions Client Response/Progress/Benefit: [] Client was an active participant throughout AEB contributing to discussion, providing personal examples, and taking notes. She provided input during discussion on the types of support our supports can provide. Client was able to identify current support system and barriers that get in the way of using supports. Client stated she struggles most with emotional support and indicated that she would challenge her thought processes that prevent her from asking for help. Connected impact this can have on her mental health. Client seemed to benefit from identifying the type of support he needs to work on improving. Client recommended to continue IOP to continue use of healthy coping, challenge distorted thoughts and improve overall functioning. Narrative Note: []
--- NOTE | 2022-03-12 14:23 | BH.MDN ---
Multi-Disciplinary Note - Note 45-min Individual Time Started:: 12:10 Date: 03/12/22 Purpose of session/treatment goals addressed:: Purpose of session was to address goals 1 and 2 from MTP. Eye Contact:: Good Motor Activity:: Appropriate Appearance:: Casual Speech:: Appropriate Mood:: Anxious, Dysthymic Affect:: Congruent Thoughts:: Linear, Logical, No evidence of hallucinations/delusions noted Staff Interventions:: thought challenging, CBT techniques, mindfulness skills, discharge planning, strengths perspective, goal setting, taught coping skills - belly breathing and grounding tools Client Response:: Client reported her weekend was yevgeniy. Client stated she started to shut down on Friday because was overwhelmed from PHP all week. Client stated on Friday she got a piece of mail addressed to her and her . Client reported the piece of mail triggered her because it included some concerning financial problems in the letter. Client stated she shut down for the majority of the day. Client reported she did have urges to self-harm and had suicidal thoughts. Client stated she stopped herself by using self-talk and stayed on the couch. Client reported she did accomplish her goal for the weekend of getting up at 10am each day. Client stated she also was able to get her art project of painting her mya mushrooms. Client reported she also was able to do some reading. Client stated her sister and family visited client yesterday. Client reported she hasn't see her sister in two years. Client stated the hangout went better than she had expected. Client reported it was nice to see her family. Client stated not feeling ready to address what she wants to do about her marriage. Client reported she is still unsure what her wants to do in regards to their marriage. Client stated at this time she does not believe she is stable enough to end the marriage or to set a timeframe. Client agreed completing trigger action plan would be helpful. Client worked with therapist to discuss trigger response plan in regards to getting mail or other triggers about her . Client stated instead of first going to her mom when upset she will allow herself time to be upset first. Client reported sometimes when she reaches out to her mom first when upset her mom will say things that don't help. Client stated she will set a timer that will help her from sitting on couch all day. Client reported then she will engage in an activity that regulates her like art. Client stated goal for the week is to do one of her tapping exercises from her navjot prior to bed. When discussing discharge client reported she does not feel ready to discharge from [facility] due to recent setback this weekend. Risks/Concerns:: Client reports suicidal ideation, denies suicidal plan or intention. Client reports feeling able to keep self safe. Client identifies mom as protective factor. Client agrees to contact crisis or go to nearest emergency room if feels unable to maintain safety. Progress Toward Goals/Plan:: Progress noted AEB client reporting being able to refrain from acting upon self-harm urges and suicidal thoughts this weekend when triggered. Client did have setback with increased suicidal and self-harm thoughts after having several days of decreased SI. Client continues to struggle with stressor of her marital problems which is signficant trigger to her mental health. Client has been able to stop self from engaging in self-harm for one week. Client to continue PHP to maintain safety, increase healthy coping skills and prevent decompensation. Time Stopped:: 13:00
--- NOTE | 2022-03-13 09:00 | BH.SGPN.GN ---
Behaviors/Verbalizations/Mental Status: []Pt alert and oriented, neatly dressed and groomed. Eye contact good. Motor activity appropriate. Speech within normal limits. Affect constricted, mood agitated and anxious. Thoughts linear, logical, no signs of hallucinations or delusions. Reviewed pt?s symptom tracker, and pt's scores were within pt's baseline. Client Response/Progress/Benefit: [] Pt responded well to session, attentive and engaged. Pt reports feeling frustrated this morning as pt has been dealing with ongoing insurance stressors due to her losing his job. Pt encouraged to talk to her IOP therapist about this. Pt reported yesterday she used opposite action to spend time with her sister when pt wanted to isolate. Pt shared she ended up having a good time, laughed a lot, and enjoyed herself. Pt stated in the past she would have isolated and felt worse, so this was progress. Pt appeared to benefit from reflecting on her use of healthy coping skills. Will continue PHP tx to promote mood stability, further decrease depression and SI, and increase use of healthy coping skills. Narrative Note: []
--- NOTE | 2022-03-13 10:10 | BH.SGPN.GN ---
Behaviors/Verbalizations/Mental Status: [] Client alert and oriented, neatly dressed and groomed. Eye contact good. Motor activity appropriate. Speech within normal limits. Affect constricted, mood depressed and anxious. Thoughts linear, logical, no signs of hallucinations or delusions. Client Response/Progress/Benefit: [] Client was an active participant AEB actively taking notes. Attentive during psychoeducation on 4 types of conflict styles (Competing, Collaborating, Avoiding, and Accommodating). Worked with group to define conflict and identify how conflict is helpful. With peers identified barriers to addressing or managing conflict which included: fear of upsetting others, fear of the outcome, and feeling uncomfortable. Client shared positives of avoiding and accommodating conflict resolution strategies. Benefited from group due to increase insight and awareness of benefits to conflict, conflict styles, and obstacles to managing conflict. Will continue in IOP to prevent decompensation, reduce depressive symptomatology,and increase self-esteem. Narrative Note: []
--- NOTE | 2022-03-13 11:15 | BH.SGPN.GN ---
Behaviors/Verbalizations/Mental Status: []Client alert and oriented, neatly dressed and groomed. Eye contact good. Motor activity appropriate. Speech within normal limits. Affect constricted mood depressed and anxious, Thoughts linear, logical, no signs of hallucinations or delusions. Client Response/Progress/Benefit: [] Client engaged in session AEB contributing to discussion and engaging in activity. Client did well to review current conflict style and its impact on mental health. Attentive and taking notes during discussion on strategies for more effectively managing conflict in personal life. client participated in activity and did well to be assertive and collaborating with being an active participant AEB stepping out of her comfort zone and utilizing learned communication skills. client given handout on fair fighting rules. Appeared to benefit from gaining strategies to help client better manage conflict. Will continue IOP tx to reduce cognitive distortions, decrease depressive symptomatology, and improve overall functioning. Narrative Note: []
--- NOTE | 2022-03-13 12:17 | PCM.BH.PN ---
Progress Note Progress Note: History of Present Illness/Interim History: [] The patient is a 31-year-old female who is currently from her who is being seen at the [facility] IOP program in follow-up for treatment of depression and anxiety. I last saw the patient 1 week ago and at that time her outpatient provider had been weaning and then discontinued the Effexor XR 1 week ago. The patient is tolerating the Pristiq well and has been compliant with it. She has had no side effects or difficulty stopping Effexor. Her mood is less depressed lately but she is still very anxious. She still has suicidal ideation which is mostly passive daily but it is less intense and only off and on during the day. She had some insurance issues lately due to her quitting his job and then possibly getting it back but they are still living apart. The patient has not cut since last time I saw her. She is using some of the skills she is learning in the IOP program to refrain from self-harm. She remains somewhat hopeless and anhedonic. She denies active suicidal ideation, homicidal ideation, hallucinations or delusions. The patient's labs were discussed with the patient and her TSH and vitamin D were within normal limits. Current Psychiatric Medications: [] Effexor XR discontinued 1 week ago. Pristiq 50 mg p.o. daily (on this dose for 17 days); hydroxyzine 25 mg, 1-2 as needed for anxiety. Trazodone 100 mg as needed for sleep. Mental Status Examination: [] The patient is an obese female who appears normal for stated age and is casually dressed and groomed with good hygiene. She has no psychomotor agitation or retardation. She is ambulatory with a normal gait. Eye contact is good and speech is normal rate and rhythm and fluent with no pressure. Mood is depressed. Affect is constricted. Thought process is goal-directed and organized. Thought content: There is evidence of passive suicidal ideation which occurs off and on throughout the day. There is no evidence of active suicidal ideation, definitive plan for suicide, homicidal ideation, hallucinations or delusions. Judgment is intact. Insight is fair. Impulsivity is high. Diagnoses: [] 1. Major depressive disorder, recurrent, severe without psychosis 2. Generalized anxiety disorder 3. Strong cluster B traits 4. Trichotillomania 5. Primary support and financial issues Plan: [] The patient will continue the IOP program at [facility] as the structure, support, education and group therapy will hopefully prevent worsening of the patient's symptoms which might require hospitalization. She felt safe during the interview and if it anytime she does not feel safe she will let us know or go to the emergency room. The risk, options, possible complications and side effects of the medications were again discussed with the patient and she understands and accepts these. No medication changes were made today. The patient saw her nurse practitioner yesterday. She will continue to follow-up with her outpatient providers and I will see the patient in follow-up while in the IOP program.
--- NOTE | 2022-03-13 15:23 | BH.MDN ---
Multi-Disciplinary Note - Note 45-min Individual Time Started:: 12:10 Date: 03/13/22 Purpose of session/treatment goals addressed:: Purpose of session was to address goals 1 and 2 from MTP. Eye Contact:: Good Motor Activity:: Restless Appearance:: Casual Speech:: Appropriate Mood:: Anxious, Depressed, Other - tearful at times Affect:: Congruent Thoughts:: Linear, Logical, No evidence of hallucinations/delusions noted Staff Interventions:: thought challenging, motivational interviewing, CBT techniques, strengths perspective, goal setting Client Response:: Client reported she is feeling yevgeniy today. Client stated feeling stressed about the insurance issue that is out of her control and makes her worried she won't be able to continue treatment. Client reported she talked with her insurance company yesterday but hasn't gotten any answers since she is waiting for her to be reinstated at work. Client expressed frustration that her didn't communicate with her about him quitting his job. Client stated her has told her to not worry and believes it will work out. Client reported she did have negative thoughts yesterday that she would be better off alone. Client receptive to therapist helping her challenge negative thoughts she was having. Client reported she was able to make some positive choices yesterday despite having the urge to shut down. Client stated she went to her mom's house to visit with her sister and sister's family since that family will be leaving tomorrow. Client reported she was able to really enjoy herself and laughed a lot. Client stated she recognizes pushing herself to do something with others was beneficial because if she stayed isolated at home she would've been more depressed and ruminated. Client reported in the evening once she was home she started having negative thoughts like it would be cheaper if I were . Client stated once she started having negative thoughts she chose to do a tapping activity through her navjot which helped her fall asleep. Client stated mood improved today compared to last night. Identified goal for day is to do tapping meditation two times. Risks/Concerns:: Client reports chronic daily thoughts of suicide. Client had increased suicidal intent yesterday. Client stated feels able to maintain safety today. Client does not have access to firearms. Agreed if suicidality were to worsen she would call crisis or go to nearest emergency room. Progress Toward Goals/Plan:: Client showing progress with being able to manage stressor yesterday without using self-harm as a coping skill. Client instead surrounded self with healthy supports and allowed herself to enjoy the moment. Client used tapping meditation to manage negative, depressed thoughts in the evening. Client continues to struggle with daily suicidal thoughts, self-harm urges, and depressed symptoms. Client has been showing improvement with engaging in healthier skills to manage depressed symptoms. Client to continue PHP to maintain safety, improve daily functioning, and prevent decompensation. Time Stopped:: 12:50
--- NOTE | 2022-03-14 09:05 | BH.SGPN.GN ---
Behaviors/Verbalizations/Mental Status: [] Eye contact is poor. Motor activity is appropriate. Appearance is casual. Speech is pressured. Mood is depressed. Affect is flat. Thoughts are linear and logical. No evidence of psychosis. Reviewed daily check in sheet and pt reports 5/5 for suicidal ideations and 3/5 for intent. Client Response/Progress/Benefit: [] Pt participated at times during the group discussion. Attentive. Daily symptom tracker notes 5/5 for depression and anxiety and 3/5 for self-harm urges. States I'm going downhill however choose not to elaborate. Group encouraged her to share however did not pressure her. She remarked that she had a horrible night last night. Group provided support, encouraging words, and empathized which was beneficial. Regression noted. Will remain in PHP to maintain safety, prevent decompensation, and increase health coping skills. Therapist will meet with pt this afternoon to process. Narrative Note: []
--- NOTE | 2022-03-14 10:20 | BH.SGPN.GN ---
Behaviors/Verbalizations/Mental Status: [] Eye contact is good. Motor activity is appropriate. Appearance is casual. Speech is Appropriate. Mood is depressed. Affect is flat. Thoughts are linear and logical. No evidence of psychosis. Client Response/Progress/Benefit: [] Pt was an active participant in group discussion. Attentive during psychoeducation on Problem-Solving in the Moment Protocol. Participated in group experiential activity. Pt provided feedback during interactive group discussion in which pt and peers worked through an example of a problem (Managing Anxiety) in which they identified a goal (minimizing anxiety) and identified barriers. Barriers identified included lack of awareness, mental health stigma, distorted thinking, not having the tools/resources, and being afraid to fail. During the experiential activity pt worked with peers to problem solve using the Problem Solving in the Moment Protocol. Group was able to complete the activity and pt was able to practice in the moment problem-solving and make connections between problem-solving for activity and in real-life situations. Increased awareness of problem-solving strategies. Will continue in PHP to maintain safety, increase healthy coping, and decrease self-injurious behaviors. Narrative Note: []
--- NOTE | 2022-03-14 11:20 | BH.SGPN.GN ---
Behaviors/Verbalizations/Mental Status: []Pt alert and oriented, casual dress, hygiene tended to. Eye contact good. Motor activity WNL. Speech appropriate rate and tone. Affect congruent, mood anxious and euthymic. Thoughts linear, logical, no signs of hallucinations or delusions. Client Response/Progress/Benefit: []Pt engaged in session as evidenced by pt listening to others and providing input throughout. Pt practiced in the activity and expressed feeling frustration and anxious, but pt was able to cope by listening and problem-solving with peers. Pt identified a goal pt wants to work on which is giving herself one yes and one no a week to promote self-care but reduce isolation. Pt?s barriers included negative self-talk, wanting to shut down, and shoulds. Pt also identified steps she could take such as identifying her social max and minimum, evaulate her peak time, and avoiding saying maybe when plans are made. Pt seemed to benefit from learning about problem solving method and rehearsing problem-solving skills in the moment. Pt will continue PHP tx to reduce self-harming urges and SI, gain healthy coping skills, and reduce negative thinking patterns. Narrative Note: []
--- NOTE | 2022-03-14 13:55 | BH.MDN ---
Multi-Disciplinary Note - Note 45-min Individual Time Started:: 12:15 Date: 03/14/22 Purpose of session/treatment goals addressed:: Met with pt to review current symptoms and progress in IOP. Pt had noted 5/5 for suicidal ideations this AM on tracker which we processed. Eye Contact:: Good Motor Activity:: Appropriate Appearance:: Casual Speech:: Appropriate Mood:: Depressed Affect:: Full Thoughts:: Linear, Logical, No evidence of hallucinations/delusions noted Staff Interventions:: thought challenging, CBT techniques, completed risk assessment / safety planning Client Response:: Pt presents today reporting increased depression last evening. I completely shut-down which led to self-injurious behaviors. Pt had 10-12 superficial cuts on her left forearm. She reports that she was overwhelmed and mentally/physically exhausted however pushed herself to spent time with her sister yesterday evening. When asked why she pushed herself she states I should be able to be social with my family ... My sister is only in town for a couple days so I should spend time with her. She managed to get through a significant portion of time with her sister and mother however towards the end she was irritable and eager to get home which she felt guilty about. When she arrived home she was unable to decompress with coping skills which led to cutting herself. She had suicidal thoughts however never had any intent or plan. When she woke up this AM she again was depressed with SI (no plan or intent). Pt was able to look at her thoughts and behaviors yesterday and identify ways she could adjust or add skills. Identified that it would have been beneficial to have read, reached out to support, do something creative (paint) and several other strategies. Group today was also beneficial as she was able to switch my mindset during 2nd and 3rd group to more education and social interaction than focusing on my problems. Insight that skills like this (podcasts, documentaries, books, etc) can be helpful in the future. Responded well to reframing that self-injurious behaviors were not failure or setback but rather a learning experience. Able to see progress that she had not cut in over a week. Risks/Concerns:: Pt reports that upon entering IOP today she had suicidal ideations with thoughts about methods (this has been daily and long-standing for several months). Her scores were slightly elevated from yesterday which she notes was due to events last evening. Able to utilize internal and external skills throughout IOP today and is currently denying any active SI, plan, or intent. Future-oriented and smiling. Does not present as imminent danger to herself due to no active SI, plan, or intent. Contracts for safety. Encouraged to call crisis our go to the ER if she develops plan or intent. She also has appt with her normal outpatient therapist this afternoon. Progress Toward Goals/Plan:: Regression noted as she reports self-injurious behaviors last night, however this was the first she has cut in over a week. Able to utilize skills to reframe thoughts, challenge cognitive distortions, and distract self to decrease SI while in PHP today. Able to use event last night to learn and identify additional coping strategies to use in the future. Pt continues to voice depression, self-harm urges, and suicidal thoughts on daily basis, however reports frequency, intensity, and duration have lessened. Reports benefits from PHP and appears to be learning new skills. Plan is to continue in PHP to maintain safety, stabilize depression, and improve functioning. Time Stopped:: 13:00
--- NOTE | 2022-03-15 10:15 | BH.SGPN.GN ---
Behaviors/Verbalizations/Mental Status: []Eye contact is good. Motor activity is appropriate. Appearance is casual. Speech is Appropriate. Mood is calm. Affect is congruent. Thoughts are linear and logical. No evidence of psychosis. Client Response/Progress/Benefit: []Pt was an active participant in group discussion and activity. Attentive during psychoeducation on the stages of change. Pt participated in interactive discussion on emotions associated with change (happy, anxious, proud, shocked, surprised, guilty, etc). Pt along with peers identified barriers that may prevent one from making change such as feeling overwhelmed by change. Pt reported just thinking of change is a trigger for me. Group able to identify the benefits to changes such as acceptance, patience, self-awareness, and personal growth. Benefited from increased awareness of emotions related to change, the change process, and benefits/barriers to change. Will discharge from [facility] today as pt has met tx goals and will step down to IOP level of care next week. Narrative Note: []
--- NOTE | 2022-03-15 13:22 | BH.MDN ---
Multi-Disciplinary Note - Note 45-min Individual Time Started:: 12:10 Date: 03/15/22 Purpose of session/treatment goals addressed:: Purpose of session was to address goals 1 and 2 from [facility]. Additional purpose was to discuss client stepping down to IOP on Friday. Eye Contact:: Fair Motor Activity:: Restless Appearance:: Casual Speech:: Appropriate Mood:: Dysthymic Affect:: Congruent Thoughts:: Linear, Logical, No evidence of hallucinations/delusions noted Staff Interventions:: thought challenging, CBT techniques, discharge planning, strengths perspective, goal setting Client Response:: Client reported feeling yevgeniy because of the unknown in regards to her insurance. Client reported she had just found out that her quit his job end of February after getting a letter in the mail telling her that her insurance is inactive. Client stated she talked with her and talked with the insurance company yesterday. Client reported frustration that this is out of her control and since not living with her she doesn't know what he is doing. Client stated her told her to not worry about it because he is going to start working again at the same job. However, client reported her doesn't seem to have any sense of urgency to get this problem taken care of which she finds stressful. Client reported she did go to her outpatient psychiatry appointment yesterday and was able to express how she was feeling. Client stated she chose to be vulnerable with her friend yesterday by being honest about her current stressor. Client stated despite wanting to just isolate and lay around she chose to go to her parents house to hang out with her sister and family again. Client reported she ended up having a really fun time and was able to laugh with them. Client reported in the evening she did have some negative thoughts but was able to manage those thoughts by talking with one of her friends. Client reported feeling ready to step down from [facility] to IOP next week. Client stated her suicidal thoughts have decreased in intensity and duration. Risks/Concerns:: Client has chronic suicidal thoughts. Currently denies suicidal intention or plan. Client is future focused. Agrees to go to nearest emergency room or call crisis if feels unable to maintain safety. Progress Toward Goals/Plan:: Client progress noted AEB client reporting decreased suicidal thoughts and ability to use healthier skills to manage negative thoughts. Client has been more social recently and opening up to her friend. Client has been following through with goal of identifying daily positives to help challenge her negative perspective. Client expresses feeling ready to discharge from [facility] and start IOP next week. Time Stopped:: 12:50
--- NOTE | 2022-03-15 13:45 | BH.DS ---
Discharge Summary - Demographics Date of Admission:: 03/04/22 Discharge Date: 03/15/22 Presenting Problems at Admission:: The patient is a 31-year-old female who has been for 3 years but has been for 10 months (since April 2021). The patient has a history of depression, anxiety and trichotillomania and was referred to the [facility] behavioral health IOP program by her outpatient adjunct psychology instructor due to depression and daily suicidal ideation. She has limited primary support. For the past 6 months she has had daily suicidal ideation off and on during the day but more than fleeting. She has been isolating herself and she has a history of self-harm for the past month now she has been cutting bilaterally on her arms superficially. Pt endorses feelings of depression with crying episodes, anhedonia, low motivation, apathy, decreased concentration, feelings of hopelessness and worthlessness. Pt has panic attacks weekly and have recently increased to daily since making a medication switch. Discharge Diagnoses:: 1. Major depressive disorder, recurrent, severe without psychosis. 2. Generalized anxiety disorder. 3. Strong cluster B traits. 4. Trichotillomania Reason for Discharge:: Client has made treatment progress with improved mood, improved daily functioning, and decreased in intensity/duration/frequency of suicidal thoughts. Client will be stepping down to the IOP program for continued support and reinforcement of skills. - Treatment Progress During Treatment & Response: Treatment progress noted AEB client reporting improved mood, improved daily functioning, and decreased suicidal thoughts. Client has been engaging with family and friends more often in the last two weeks. Client using opposite action to complete small daily goals which seems to have positive impact on her emotions. Client has reverted to her unhealthy coping skill of self-harm two times in two weeks which is a decrease in frequency when compared to prior to starting PHP. Client has responded well to PHP AEB consistent attendance, appearing to listen attentively to others, contributes at times to discussion, takes notes and follows through with homework from individual counseling. Issues Still to be Addressed:: Continue to reinforce healthy coping skills, build confidence, increase ability to challenge negative thinking independently, and maintain safety. Discharge Recommendations/Instructions:: Client will continue to see her outpatient providers for counseling and psychiatry. Client to start IOP on 03/18/22. Discharge Handout: Complete Discharge Handout with client on aftercare options and continuity of care.
== END 2022-03-15 13:26 | disposition home or self-care (01) ==
LOC: BHPHP 07:27
PROVIDERS: Referring Provider Psychiatry & Neurology Psychiatry; Visit Provider Psychiatry & Neurology Psychiatry
DX: F33.2 Major depressive disorder, recurrent severe without psychotic features (principal); F41.1 Generalized anxiety disorder; F63.3 Trichotillomania; Z79.899 Other long term (current) drug therapy
CPT/HCPCS: H0035; 90834; G0410

== ENCOUNTER 2022-03-19 08:00 | Outpatient (RCR) | payer OTHER, SELFPAY ==
--- NOTE | 2022-03-15 09:05 | BH.SGPN.GN ---
Behaviors/Verbalizations/Mental Status: [] Eye contact is good. Motor activity is appropriate. Appearance is casual. Speech is Appropriate. Mood is depression. Affect is flat. Thoughts are linear and logical. No evidence of psychosis. Reviewed daily check in sheet and pt reports 3/5 for suicidal thoughts and 1/5 for intent which is significant reduction. Client Response/Progress/Benefit: [] Pt participated at times during the group discussion. Emotion for today is curious. Daily symptom tracker notes 5/5 for depression and anxiety. Mental health win was working through being in a bad head space. Shared with the group skills that she used to work through negative thoughts and depression. I'm feeling better and not dwelling as much. She is utilizing existing support and reaching out socially to make new friendships which has been beneficial to her mental health. Current stressors is ongoing conflict and lack of communication with her (currently ). Progress noted per pt report. Beneifted from group support, encouragement, and feedback. Will continue in PHP to maintain safety, stabilize mood, and improve functioning. Narrative Note: []
--- NOTE | 2022-03-19 09:05 | BH.SGPN.GN ---
Behaviors/Verbalizations/Mental Status: [] Eye contact is good. Motor activity is appropriate. Appearance is casual. Speech is Appropriate. Mood is depression. Affect is flat. Thoughts are linear and logical. No evidence of psychosis. Reviewed daily check in sheet and pt reports 2/5 for suicidal thoughts and 0/5 for intent. Client Response/Progress/Benefit: [] Pt was an active participant in group discussion. Attentive. Provided appropriate feedback. Emotion for today is melancholy. Mental health wins include managing her social anxiety while she attended a crowed event. Also has been more social and is cultivating a new friendship rather than isolating. Increased motivation and completion of tasks rather than avoidance. Stressor was increased anxiety and depression which resulted from a trigger It reminded me of where I thought I would be and where I currently am. Shared how this trigger impacted her mental health. Benefited from group support, encouragment, and feedback. Will continue in IOP to maintain safety, increase health coping skills, and to stabilize functioning. Narrative Note: []
--- NOTE | 2022-03-19 10:15 | BH.SGPN.GN ---
Behaviors/Verbalizations/Mental Status: [] Eye contact is good. Motor activity is appropriate. Appearance is casual. Speech is Appropriate. Mood is euthymic. Affect is full. Thoughts are linear and logical. No evidence of psychosis. Client Response/Progress/Benefit: [] Pt was an active participant in group discussions. Attentive during psychoeducation. Participated in experiential activity. Pt participated in interactive discussion on the consequences of unhealthy expression of emotions. Pt along with peers identified several consequences which included; judgement from others, can push people away, people will keep information from us for fear we cannot handle it, we are perceived as angry or crazy, impacts our ability to effectively communicate. Pt also participated in interactive discussion on common potholes to effectively communicating which included; not focusing on topic at hand, too many issues/concerns at once, assumptions, jumping to conclusions, sarcasm, listening only to respond, and mental health struggles. Pt was able to relate and make connections between the experiential activity and the overall topic. Benefited from increased awareness of how stress and emotions can impact one's ability to communicate. Will continue in IOP to maintain safety, increase healthy coping, and prevent decompensation. Narrative Note: []
--- NOTE | 2022-03-19 11:10 | BH.SGPN.GN ---
Behaviors/Verbalizations/Mental Status: []Pt alert and oriented, neatly dressed and groomed. Eye contact good. Motor activity appropriate. Speech within normal limits. Affect constricted, mood anxious. Thoughts linear, logical, no signs of hallucinations or delusions. Client Response/Progress/Benefit: []Pt engaged in session AEB client listening attentively to peers and providing input. Attentive during psychoeducation on 4 zones of regulation. Pt able to identify feelings and behaviors for each zone. Pt identified coping skills one can use to support self in each zone. Pt stated belief that pt is in the yellow zone today as pt feels anxious and restless. Pt stated her normal is the yellow zone as pt is often anxious. Pt reports going out to lunch with her friend and not canceling will help pt maintain mood today. Benefited from increased education on zones of regulation or stages of alertness for emotions and healthy coping skills to use for each zone. Pt will continue IOP tx to reduce intensity of symptoms, reduce negative thinking patterns, and increase confidence. Narrative Note: []
--- NOTE | 2022-03-20 09:00 | BH.SGPN.GN ---
Behaviors/Verbalizations/Mental Status: [] Eye contact is good. Motor activity is appropriate. Appearance is neat. Speech is Appropriate. Mood is depressed. Affect is flat. Thoughts are linear and logical. No evidence of psychosis. Reviewed daily check in sheet and pt reports 1/5 for suicidal thoughts and 0/5 for intent. Client Response/Progress/Benefit: [] Pt was an active participant in group discussion. Attentive. Provided appropriate feedback. Emotion for today is blah and exhausted. Mental health win was that she went to lunch with a friend. Increasing her social activities and putting effort into making and maintaining friendships. She continues to utilize skills to work through low days (referring to depression). Able to identify when she schedules too much and is setting boundaries. Its ok to say no. Trying to acknowledge my depression and accept it rather than fight and feel horrible for being depressed. Normalizing the emotion which has been beneficial. Progress noted per pt report. Benefited from group support, encouragement, and feedback. Will continue in IOP to maintain safety, prevent decompensation, and improve functioning. Narrative Note: []
--- NOTE | 2022-03-20 10:05 | BH.SGPN.GN ---
Behaviors/Verbalizations/Mental Status: [] Client alert and oriented, casually dressed and groomed. Eye contact good. Motor activity appropriate. Speech within normal limits. Affect congruent, mood euthymic. Thoughts linear, logical, no signs of hallucinations or delusions. Client Response/Progress/Benefit: [] Client was an active participant in activity and taking notes during group discussion. Attentive during psychoeducation on coping skills, why people use unhealthy coping skills, and how to replace unhealthy coping skills. Client shared negative coping skills of over-eating/under-eating when stressed. Benefited from increased understanding of unhealthy coping skills and the need for developing healthy internal and external coping skills. Client identified as utilizing more internal than external skills. Client will continue IOP tx to prevent decompensation, maintain safety, increase management depressive symptomatology, and increase overall functioning. Narrative Note: []
--- NOTE | 2022-03-20 11:05 | BH.SGPN.GN ---
Behaviors/Verbalizations/Mental Status: [] Client alert and oriented, neatly dressed and groomed. Eye contact fair to good. Motor activity appropriate. Speech within normal limits. Affect congruent, mood euthymic. Thoughts linear, logical, no signs of hallucinations or delusions. Client Response/Progress/Benefit: [] Client responded well to session AEB taking notes and providing input and examples throughout. Group discussed the different categories of coping skills which included distraction, emotional release, grounding, self-love, and thought challenging. Client created a coping skill menu identifying various skills to try in each category. Client's coping skill menu included: going outside more, guided meditation, tap dancing, cooking and improve awareness of present emotions. Appeared to benefit from increasing repertoire of healthy coping skills. Client will continue IOP tx to improve daily functioning, reduce negative thinking, and increase application of healthy coping skills. Narrative Note: []
--- NOTE | 2022-03-20 11:33 | PCM.BH.PN ---
Progress Note Progress Note: History of Present Illness/Interim History: [] Patient is a 31-year-old female who is seen in follow-up at the [facility] behavioral health IOP program. I last saw the patient 1 week ago and this week the patient has been downgraded from [facility] to IOP as she has shown improved stability and has been slowly getting better. Her daily suicidal ideation has decreased to fleeting, passive suicidal ideation only once in the past 3 days or so where is it was pretty much constant before. The patient feels that she is learning skills that are quite valuable to use to help her cope with her mental health symptoms. She did cut her self once last week but she was able to use skills she is learning to recover from that episode. She is having less self-harm thoughts this week. She denies hopelessness now and denies anhedonia. She is currently enjoying coming to the IOP and enjoying reading. She denies active suicidal ideation, homicidal ideation, hallucinations or delusions. She has had at times increased anxiety which she feels may be due to what is going on with her marital issues. Her quit his job and did not tell her and she has had some insurance issues due to this and they remain . The patient sleep remains adequate with the medications she has. Current Psychiatric Medications: [] Pristiq 50 mg p.o. daily (on this for 3 weeks); hydroxyzine 25 mg, 1-2 as needed for anxiety); trazodone 100 mg as needed for sleep nightly. Mental Status Examination: [] Patient is an obese female who appears normal for stated age and is casually dressed and groomed with good hygiene. She is cooperative during the interview and is ambulatory with a normal gait. She has no psychomotor agitation or retardation. Eye contact is good and speech is normal rate and rhythm and fluent with no pressure. Mood is mildly depressed. Affect is constricted to full. Thought process is goal-directed and organized. Thought content: There is no evidence of suicidal ideation, homicidal ideation, hallucinations or delusions. There is some evidence of occasional thoughts of self-harm but patient has been able to resist this. Judgment is intact. Insight is improving and fair. Impulsivity is high. Diagnoses: [] 1. Major depressive disorder, recurrent, severe without psychosis 2. Generalized anxiety disorder 3. Strong cluster B traits 4. Trichotillomania 5. Primary support and financial issues Plan: [] The patient will discontinue the PHP program and will attend the IOP program now at [facility] as the structure, support, education and group therapy will hopefully prevent worsening of the patient's symptoms which might require hospitalization. She felt safe during the interview and if it anytime she does not feel safe she will let us know or go to the emergency room. The risks, options, possible complications and side effects of the medications were again discussed with the patient and she understands and accepts these. I will see the patient in follow-up in 1 to 2 weeks and if there is no more improvement in her symptoms over the next few weeks we will consider increasing her Pristiq to 100 mg p.o. daily. She will continue to follow-up with her outpatient providers and I will see the patient in follow-up as noted above.
--- NOTE | 2022-03-21 08:18 | BH.COMM ---
Communication Note - Communication with Client Communication Note: Called in to cancel IOP today as her father is in the hospital. She called back later in the day stating that her father .
--- NOTE | 2022-03-26 08:19 | BH.COMM ---
Communication Note - Communication with Client Communication Note: Pt called in to cancel IOP this week due to her father's passing last week.
--- NOTE | 2022-04-01 07:34 | BH.DS_ITS ---
Discharge Summary - Demographics Date of Admission:: 03/19/22 Discharge Date: 04/01/22 Presenting Problems at Admission:: The patient is a 31-year-old female who has been for 3 years but has been for 10 months (since April 2021). The patient has a history of depression, anxiety and trichotillomania and was referred to the [facility] behavioral health IOP program by her outpatient advanced practice psychiatric nurse due to depression and daily suici river ideation. She has limited primary support. For the past 6 months she has had daily suicidal ideation off and on during the day but more than fleeting. She has been isolating herself and she has a history of self-harm for the past month now she has been cutting bilaterally on her arms superficially. Pt endorses feelings of depression with crying episodes, anhedonia, low motivation, apathy, decreased concentration, feelings of hopelessness and worthlessness. Pt has panic attacks weekly and have recently increased to daily since making a medication switch. Pt completed PHP for 9 days and reported decrease in suicidal thoughts and self-harm. Continued to report moderate to severe depressive and anxious symptoms at admission to IOP. Discharge Diagnoses:: 1. Major depressive disorder, recurrent, severe without psychosis F33.2. 2. Generalized anxiety disorder. 3. Strong cluster B traits. 4. Trichotillomania Reason for Discharge:: Client left voicemail on 03/31/22 stating at this time she cannot continue IOP. Client's father unexpectedly on 03/21/22 and client has not been able to attend any sessions since this passing. - Treatment Progress During Treatment & Response: Limited progress in IOP due to client only being able to attend two sessions. Client had made progress during PHP level of care with decrease suicidal thoughts, decreased self-harm thoughts and improved ability to manage emotions. In client's two IOP sessions she was engaged participant AEB her providing feedback during discussions. Client experiencing of her father on 03/21/22 has prevented her from attending anymore IOP sessions due to her needing to grieve and be with her family. Issues Still to be Addressed:: Continue to reinforce healthy coping skills, build confidence, increase ability to challenge negative thinking independently, and maintain safety. Discharge Recommendations/Instructions:: Recommended to continue individual counseling at [facility] and medication management through [id number]. Discharge Handout: Complete Discharge Handout with client on aftercare options and continuity of care.
== END 2022-04-03 08:06 | disposition home or self-care (01) ==
LOC: BHIOP 08:00
PROVIDERS: Referring Provider Psychiatry & Neurology Psychiatry; Visit Provider Psychiatry & Neurology Psychiatry
DX: F33.2 Major depressive disorder, recurrent severe without psychotic features (principal); F41.1 Generalized anxiety disorder; Z79.899 Other long term (current) drug therapy; F63.3 Trichotillomania; E66.9 Obesity, unspecified
CPT/HCPCS: S9480; 90853